=== PATIENT | female | born 1945 | race Hispanic/Latino ===

== ENCOUNTER 2018-10-22 06:05 | Day surgery (SDC) | payer OTHER ==
[2018-10-20 13:31] VITALS: BP 177/88
[2018-10-20 13:39] LABS: BASOPHILS % (AUTO) 0.3 % (0.0-5.0); EOSINOPHILS % (AUTO) 1.8 % (0.0-8.0); HEMATOCRIT 36.9 % (36-48); LYMPHOCYTES % (AUTO) 29.6 % (21.0-51.0); MEAN CORPUSCULAR HEMOGLOBIN 31.3 pg (27.0-33.0); MEAN CORPUSCULAR HGB CONC 33.2 g/dL (32.0-36.0); MEAN CORPUSCULAR VOLUME 94.2 fL (79-99); MONOCYTES % (AUTO) 7.6 % (3.0-13.0); NEUTROPHILS % (AUTO) 60.7 % (40.0-77.0); NUCLEATED RED BLOOD CELLS 0.1 % (0.0-0.19); PLATELET COUNT (AUTO) 180 K/uL (130-400); RED BLOOD CELL COUNT(AUTO) 3.92 MIL/uL (4.00-5.50); RED CELL DISTRIBUTION WIDTH 14.1 % (11.0-15.5); WHITE BLOOD COUNT (AUTO) 8.4 K/uL (4.8-10.8)
[2018-10-20 13:47] LABS: CREATININE 0.8 mg/dL (0.5-1.5); POTASSIUM 3.5 mmol/L (3.5-5.1)
[2018-10-20 13:51] LABS: PARTIAL THROMBOPLASTIN TIME 30.3 SEC (26.3-35.5); PROTHROMBIN TIME 10.5 SEC (9.6-11.6)
[2018-10-20 13:51] LABS: APPEARANCE,URINE Clear (CLEAR); BILIRUBIN,URINE Negative (NEGATIVE); COLOR,URINE Yellow (YELLOW); GLUCOSE, URINE (UA) Negative (NEGATIVE); KETONES,URINE Negative (NEGATIVE); LEUKOCYTE ESTERASE ,URINE Moderate (NEGATIVE); NITRATE,URINE Negative (NEGATIVE); OCCULT BLOOD,URINE Trace (NEGATIVE); PH,URINE 5.5 (5.0-8.0); PROTEIN,URINE Negative (NEGATIVE); UROBILINOGEN,URINE 0.2 mg/dL (0.2-1.0)
[2018-10-20 14:07] LABS: BACTERIA,URINE Rare /HPF (None Seen); RBC,URINE 0-1 /HPF (0-1); SQUAMOUS EPITHELIAL CELL,UR Rare /HPF (0-2)
--- NOTE | 2018-10-21 11:07 | NUR ---
ABNORMAL UA UA RESULT REPORTED TO MIGUEL ROSALES. U NIT-NEGATIVE, ULEUKEST MODERATE, UWBC 2-5. NO FURTHER ORDERS GIVEN, MAY PROCEED WITH PLANNED PROCEDURE.
[~2018-10-22] VITALS: Ht 160 cm; Wt 80.6 kg
[2018-10-22] VITALS (12 sets, daily range): BP systolic 103–139; BP diastolic 50–75
[~2018-10-22 06:05] MED LIST: ATOR40TA71 PO; CHLO25TA3 PO; GABA-529 PO; ISOS30TA6 PO; LEVO50 PO; LOSA100T58 PO; METO-391 PO; MONT10TA24 PO
[2018-10-22] MEDS ORDERED: SODIUM CHLORIDE 0.9% 1000ML 1,000 ML IV ONE (06:16)
[2018-10-22] MEDS ORDERED: AEC81 PO (06:58)
[2018-10-22] MEDS ORDERED: METO50TA18 PO (06:58)
[2018-10-22] MEDS ORDERED: LIDOCAINE HCL 2% 20ML ONE ×2 (09:30→12:09)
[2018-10-22] MEDS ORDERED: IOHEXOL-350 50ML VIAL IV ONE ×3 (09:30→12:45)
[2018-10-22] MEDS ORDERED: HEPARIN SODIUM 1000UNIT/ML 10ML VIAL ONE ×2 (09:30→11:56)
[2018-10-22] MEDS ORDERED: IOHEXOL 350 MG/ML 100ML INFUS..BTL IV ONE ×2 (09:30→11:56)
[2018-10-22] MEDS ORDERED: NITROGLYCERIN 5 MG/ML 10 ML VIAL IV ONE ×2 (09:30→11:57)
[2018-10-22] MEDS ORDERED: LABETALOL HCL 5 MG/ML 20ML VIAL IV ONE (12:49)
[2018-10-22] MEDS ORDERED: HYDRALAZINE HCL 20 MG/ML VIAL ONE (12:54)
[2018-10-22] MEDS ORDERED: NITROGLYCERIN 4.1 GM SPRAY TL ONE (13:02)
--- NOTE | 2018-10-22 13:40 | NUR ---
ASSESSMENT RECEIVED PT FROM [employer] MEAT [employer] PERSONNEL CHERYL FAIRCHILD. SITE TO RIGHT GROIN SOFT TO TOUCH. NO BLEEDING, OOZING NOTED TO SITE. INSTRUCTED PT AND PTS FAMILY ON IMPORTANCE OF KEEPING RIGHT LEG STRAIGHT AND NOT TO LIFT HEAD UP OFF OF BED. BOTH VERBALIZED UNDERSTANDING.
--- NOTE | 2018-10-22 18:55 | NUR ---
TRANSFER PT TRANSFERRED VIA BED TO CHERYL NAVARRO. SITE TO RIGHT GROIN SOFT TO TOUCH. NO BLEEDING, OOZING NOTED TO SITE. DAUGHTER AT BEDSIDE. PT DENIES ANY PAIN, DISCOMFORTS.
--- NOTE | 2018-10-22 20:00 | NUR ---
ASSESSMENT PATIENT IS AAOX3. PATIENT DENIES CHEST PAIN AND SHORTNESS OF BREATH. ON ROOM AIR. RESPIRATIONS UNLABORED. SINUS RHYTHM HR 80'S. S/P LEFT HEART CATH. RT. GROIN SOFT WITHOUT BLEEDING OR HEMATOMA. PEDAL PULSES PALPABLE. BEDREST OVER. ASSISTED PATIENT TO SITTING POSITION IN BED FOR A FEW MINUTES. PATIENT AMBULATED IN ROOM. BP AFTER AMBULATION 113/52, HR 69. RT. GROIN REMAINS SOFT WITHOUT BLEEDING OR HEMATOMA. PATIENT DENIES ANY DISTRESS. PERIPHERAL IV REMOVED. TELEPACK REMOVED. PATIENT DISCHARGED TO HOME AT 2030. ACCOMPANIED BY FAMILY. PATIENT TAKEN TO E.R. EXIT VIA WHEELCHAIR BY ANTON ROBERTSON.
== END 2018-10-22 20:30 | disposition home or self-care (01) ==
LOC: DAH 06:05
PROVIDERS: ATTEND Internal Medicine Cardiovascular Disease
DX: I25.798 Atherosclerosis of other coronary artery bypass graft(s) with other forms of angina pectoris (principal); Z82.49 Family history of ischemic heart disease and other diseases of the circulatory system; I10 Essential (primary) hypertension; E78.5 Hyperlipidemia, unspecified; E03.9 Hypothyroidism, unspecified; Z79.899 Other long term (current) drug therapy; Z98.890 Other specified postprocedural states; Z79.01 Long term (current) use of anticoagulants
CPT/HCPCS: 36415; 71045; 80048; 81001; 85025; 85610; 85730; 93005; 93459; A4606; C1769; C1894; J0360; J1644 ×3; J3490 ×4; J7030; Q9965; Q9967 ×2

== ENCOUNTER → 2018-11-20 | Outpatient (CLI) | payer OTHER ==
[~2018-11-20] MED LIST changes: +AEC81 PO; -METO-391 PO; +METO50TA18 PO
== END | disposition home or self-care (01) ==
LOC: RAH 12:00
PROVIDERS: ATTEND Thoracic Surgery (Cardiothoracic Vascular Surgery)
DX: I25.10 Atherosclerotic heart disease of native coronary artery without angina pectoris (principal); I21.9 Acute myocardial infarction, unspecified
CPT/HCPCS: 93930

== ENCOUNTER 2019-03-24 05:56 | Inpatient (IN) | payer OTHER, MEDICARE | END 2019-03-28 16:45 | disposition home or self-care (01) | LOC: DAHIP 05:56 → 2BH 03-26 00:07 → 2CV 10:29 → 2AH 03-27 18:54 → 2CV 10:54 | PROC: 02W Heart and Great Vessels, Revision (ICD-10-PCS; principal; 2019-03-24 08:04) | DX: T82.868A Thrombosis due to vascular prosthetic devices, implants and grafts, initial encounter (principal); I25.10 Atherosclerotic heart disease of native coronary artery without angina pectoris; E11.9 Type 2 diabetes mellitus without complications ==